=== PATIENT | male | born 1970 | race Caucasian/White ===

== ENCOUNTER 2016-06-01 12:35 | Emergency (ER) | payer MEDICARE ==
[2016-06-01 13:16] LABS: BASO % 0.1 % (0.2-1.2); EOS # 0.1 10_X3_uL (0.0-0.5); EOS % 0.9 % (0.8-7.0); GRAN # 5.7 10_X3_uL (1.8-5.4); GRAN % 74.2 % (34.0-67.9); HEMATOCRIT 44.7 % (40-51); HEMOGLOBIN 15.3 g/dL (13.7-17.5); LYMPH # 1.2 10_X3_uL (1.3-3.6); LYMPH % 15.7 % (21.8-53.1); MEAN CORPUSCULAR HEMOGLOBIN 32.3 pg (27.0-33.0); MEAN CORPUSCULAR HGB CONC 34.2 g/dL (32.0-36.0); MEAN CORPUSCULAR VOLUME 94.5 fL (79-92); MEAN PLATELET VOLUME 10.5 fl (7.5-11.5); MONO # 0.7 10_X3_uL (0.3-0.8); MONO % 9.1 % (5.3-12.2); PLATELET COUNT 171 x10_3/uL (163-337); RED BLOOD COUNT 4.73 x10_6/uL (4.6-6.1); RED CELL DISTRIBUTION WIDTH 13.4 % (11.6-14.4); WHITE BLOOD COUNT 7.7 x10_3/uL (4.2-9.1)
[2016-06-01 13:32] LABS: ALKALINE PHOSPHATASE 90 U/L (50-136); ALT/SGPT 37 U/L (7.53-40.17); AST/SGOT 23 U/L (6.66-35.34); BILIRUBIN,TOTAL 0.35 mg/dL (0.0-1.0); BLOOD UREA NITROGEN 8 mg/dL (7-18); CALCIUM 8.8 mg/dL (8.7-10.7); CARBON DIOXIDE 23 mmol/L (21-32); CREATININE 0.9 mg/dL (0.6-1.3); GLUCOSE,RANDOM 94 mg/dL (70-99); LIPASE 36 U/L (6.75-60.75); POTASSIUM 3.8 mmol/L (3.5-5.1); SODIUM 140 mmol/L (136-145); TOTAL PROTEIN 6.8 gm/dL (6.4-8.2)
== END 2016-06-01 14:26 | disposition home or self-care (01) ==
LOC: ER 12:35
PROVIDERS: Internal Medicine
DX: R10.9 Unspecified abdominal pain (principal); R19.7 Diarrhea, unspecified; R11.0 Nausea; F17.210 Nicotine dependence, cigarettes, uncomplicated; Z79.891 Long term (current) use of opiate analgesic; Z79.899 Other long term (current) drug therapy
CPT/HCPCS: 36415; 74000; 80053; 83690; 85025; 96372; 99283-25

== ENCOUNTER 2016-07-11 05:26 | Emergency (ER) | payer MEDICARE ==
[2016-07-11 06:00] LABS: BASO % 0.3 % (0.2-1.2); EOS # 0.2 10_X3_uL (0.0-0.5); GRAN # 6.5 10_X3_uL (1.8-5.4); GRAN % 66.1 % (34.0-67.9); HEMATOCRIT 44.7 % (40-51); LYMPH # 2.3 10_X3_uL (1.3-3.6); MEAN CORPUSCULAR HEMOGLOBIN 32.1 pg (27.0-33.0); MEAN CORPUSCULAR HGB CONC 33.6 g/dL (32.0-36.0); MEAN CORPUSCULAR VOLUME 95.5 fL (79-92); MEAN PLATELET VOLUME 10.4 fl (7.5-11.5); MONO # 0.9 10_X3_uL (0.3-0.8); MONO % 8.6 % (5.3-12.2); PLATELET COUNT 223 x10_3/uL (163-337); RED BLOOD COUNT 4.68 x10_6/uL (4.6-6.1); RED CELL DISTRIBUTION WIDTH 13.9 % (11.6-14.4); WHITE BLOOD COUNT 9.9 x10_3/uL (4.2-9.1)
[2016-07-11 06:14] LABS: ALBUMIN 3.8 gm/dL (3.4-5.0); ALKALINE PHOSPHATASE 81 U/L (50-136); ALT/SGPT 79 U/L (7.53-40.17); AMYLASE 29 U/L (15.62-74.58); AST/SGOT 55 U/L (6.66-35.34); BILIRUBIN,TOTAL 0.31 mg/dL (0.0-1.0); BLOOD UREA NITROGEN 8 mg/dL (7-18); CALCIUM 8.8 mg/dL (8.7-10.7); CARBON DIOXIDE 24 mmol/L (21-32); CREATININE 0.7 mg/dL (0.6-1.3); GLUCOSE,RANDOM 90 mg/dL (70-99); LIPASE 36 U/L (6.75-60.75); SODIUM 142 mmol/L (136-145); TOTAL PROTEIN 6.5 gm/dL (6.4-8.2)
== END 2016-07-11 10:14 | disposition home or self-care (01) ==
LOC: ER 05:26
PROVIDERS: General Practice
DX: R59.0 Localized enlarged lymph nodes (principal); R74.8 Abnormal levels of other serum enzymes; R11.0 Nausea; R10.32 Left lower quadrant pain; R10.31 Right lower quadrant pain; E66.9 Obesity, unspecified; F17.210 Nicotine dependence, cigarettes, uncomplicated; Z79.891 Long term (current) use of opiate analgesic; Z79.899 Other long term (current) drug therapy
CPT/HCPCS: 36415; 80053; 82150; 83690; 85025; 96374; 96375; 99070; 99284-25; J7040; Q9967